=== PATIENT | female | born 1960 | race Caucasian/White ===

== ENCOUNTER 2019-02-01 17:13 | Observation (INO) ==
[2019-02-01 18:32] LABS: Basophils # 0.1 10*3/uL (0.0-0.2); Basophils % 0.4 % (0.0-0.8); Eosinophils # 0.1 10*3/uL (0.0-0.87); Eosinophils % 0.4 % (0.00-10.9); Hematocrit 46.4 VOL% (35.7-47.0); Hemoglobin 15.5 GM/DL (12.0-16.0); Immature Granulocytes % 0.9 %; Lymphocytes # 2.1 10*3/uL (1.4-4.0); Mean Corpuscular HGB Conc 33.4 GM/DL (32-36); Mean Corpuscular Volume 88.9 FL (87-102); Mean Platelet Volume 10.9 FL (9.6-12.0); Monocytes % 4.1 % (1.7-12.7); Neutrophils % 85.2 % (38.7-73.9); Platelet Count 272 T/CUMM (130-400); Red Blood Count 5.22 MC/CUMM (3.8-5.5)
[2019-02-01 18:55] LABS: Alanine Aminotransferase 39 U/L (13-56); Alkaline Phosphatase 80 U/L (45-117); Aspartate Amino Transferase 26 U/L (0-37); Blood Urea Nitrogen 11 MG/DL (7-18); Calcium 9.6 MG/DL (8.5-10.1); Estimated Glom Filtration Rate 73 ML/MIN; Glucose 192 MG/DL (74-106); Osmolality,Calculated 271.2 MOS/KG (273-304); Total Protein 9.3 G/DL (6.4-8.3); Troponin I < 0.015 NG/ML (0.00-0.045)
[2019-02-01 19:23] LABS: Band Neutrophils 1 % (0-10); Eosinophils 1 % (0-10); Giant Platelets Few; Lymphocytes 9 % (20-55); Platelet Estimate Adequate; Segmented Neutrophils 87 % (50-85); Total Cells Counted 100
[2019-02-01] MEDS ORDERED: METOCLOPRAMIDE 10 MG/2 ML VIAL IV STA (19:59)
[2019-02-01] MEDS ORDERED: SODIUM CHLORIDE 0.9% 1,000 ML IV STA (19:59)
[2019-02-01] MEDS ORDERED: PANTOPRAZOLE 40 MG VIAL IV STA (19:59)
[2019-02-01] MEDS ORDERED: CIPROFLOXACIN INJ 400 MG in PREMIX 1 EACH IV STA (19:59)
[2019-02-01] MEDS ORDERED: metroNIDAZOLE INJ 500 MG in PREMIX 1 EACH IV STA (19:59)
[2019-02-01] MEDS ORDERED: ONDANSETRON 4 MG/2 ML VIAL IV STA (19:59)
[2019-02-01 20:37] LABS: Apearance,Urine CLEAR (Clear); Bilirubin,Urine Negative (Negative); Blood, Urine Negative (Negative); Glucose,Urine (UA) Negative (Negative); Ketones,Urine 5 mg/dL (Negative); Mucus,Urine Occasional /LPF (Occasional); Nitrite,Urine Negative (Negative); Protein,Urine Negative; RBC,Urine 2 /HPF (0-4); Squamous Epithelial Cell,Urine Occasional /HPF (0-10); Urine Color Yellow (Yellow); Urine Urobilinogen < 2.0 EU/DL (0.2-1.0); WBC,Urine <1 /HPF (0-6)
[2019-02-02] MEDS ORDERED: ALBUTEROL/IPRATROPIUM 3 ML NEB RESP TX PRN (01:31)
[2019-02-02] MEDS ORDERED: PROMETHAZINE 25 MG/1 ML VIAL IM PRN (01:31)
[2019-02-02] MEDS ORDERED: GLUCAGON 1 MG VIAL IM PRN (01:31)
[2019-02-02] MEDS ORDERED: ONDANSETRON 4 MG/2 ML VIAL IV PRN (01:31)
[2019-02-02] MEDS ORDERED: hydrALAZINE 20 MG/1 ML VIAL IV PRN (01:31)
[2019-02-02] MEDS ORDERED: DEXTROSE 50% 25 GM/50 ML VIAL IV PRN (01:31)
[2019-02-02] MEDS ORDERED: ACETAMINOPHEN 325 MG TABLET PO PRN (01:31)
[2019-02-02] MEDS ORDERED: HYDROmorphone 2 MG/1 ML VIAL IV PRN (01:31)
[2019-02-02] MEDS: SODIUM CHLORIDE 0.9% 1,000 ML IV SCH (01:48)
[2019-02-02] MEDS ORDERED: PNEUMOCOCCAL VACCINE (13 VALENT) 0.5 ML SYRINGE IM ONE (02:25)
[2019-02-02] MEDS ORDERED: INFLUENZA VIRUS VACCINE 0.5 ML SYRINGE IM ONE (02:25)
[2019-02-02] MEDS: metroNIDAZOLE INJ 500 MG in PREMIX 1 EACH IV SCH ×3 (05:16→22:11)
[2019-02-02 05:42] LABS: Basophils # 0.1 10*3/uL (0.0-0.2); Basophils % 0.4 % (0.0-0.8); Eosinophils # 0.2 10*3/uL (0.0-0.87); Hematocrit 44.9 VOL% (35.7-47.0); Hemoglobin 14.5 GM/DL (12.0-16.0); Immature Granulocytes % 0.7 %; Immature Granulocytes Absolute 0.11 #; Lymphocytes # 3.4 10*3/uL (1.4-4.0); Mean Corpuscular HGB Conc 32.3 GM/DL (32-36); Mean Corpuscular Volume 91.6 FL (87-102); Mean Platelet Volume 10.7 FL (9.6-12.0); Monocytes % 6.9 % (1.7-12.7); Platelet Count 245 T/CUMM (130-400); Red Cell Distribution Width 13.2 % (9.3-17.3); White Blood Count 15.3 T/CUMM (4-12)
[2019-02-02] MEDS: INSULIN REGULAR 100 UNIT/ML SUBCUT SCH ×3 (06:01→17:08)
[2019-02-02 06:09] LABS: Calcium 8.9 MG/DL (8.5-10.1); Osmolality,Calculated 286.1 MOS/KG (273-304)
[2019-02-02] MEDS: CIPROFLOXACIN INJ 400 MG in PREMIX 1 EACH IV SCH ×2 (08:15→21:05)
[2019-02-02] MEDS: LOSARTAN 50 MG TABLET PO SCH (08:15)
[2019-02-02] MEDS: PANTOPRAZOLE 40 MG TABLET PO SCH (08:16)
[2019-02-03] MEDS: SODIUM CHLORIDE 0.9% 1,000 ML IV SCH ×2 (00:47→22:05)
[2019-02-03] MEDS: INSULIN REGULAR 100 UNIT/ML SUBCUT SCH ×4 (00:52→17:17)
[2019-02-03 05:27] LABS: Basophils # 0.1 10*3/uL (0.0-0.2); Basophils % 0.5 % (0.0-0.8); Eosinophils # 0.3 10*3/uL (0.0-0.87); Eosinophils % 2.4 % (0.00-10.9); Hematocrit 41.5 VOL% (35.7-47.0); Hemoglobin 13.6 GM/DL (12.0-16.0); Immature Granulocytes % 0.5 %; Immature Granulocytes Absolute 0.06 #; Lymphocytes # 3.1 10*3/uL (1.4-4.0); Lymphocytes % 28.2 % (21.3-54.2); Mean Corpuscular HGB Conc 32.8 GM/DL (32-36); Mean Corpuscular Volume 90.8 FL (87-102); Mean Platelet Volume 11.3 FL (9.6-12.0); Monocytes % 7.6 % (1.7-12.7); Neutrophils % 60.8 % (38.7-73.9); Platelet Count 226 T/CUMM (130-400); Red Blood Count 4.57 MC/CUMM (3.8-5.5); Red Cell Distribution Width 13.1 % (9.3-17.3)
[2019-02-03] MEDS: metroNIDAZOLE INJ 500 MG in PREMIX 1 EACH IV SCH ×3 (05:48→21:28)
[2019-02-03 05:50] LABS: Albumin 3.1 G/DL (3.4-5.0); Bilirubin,Direct 0.11 MG/DL (0.0-0.20); Bilirubin,Indirect 0.4 MG/DL (0.0-1.0); Bilirubin,Total 0.5 MG/DL (0.2-1.0); Total Protein 7.3 G/DL (6.4-8.3)
[2019-02-03 06:21] LABS: Calcium 8.6 MG/DL (8.5-10.1); Osmolality,Calculated 283.1 MOS/KG (273-304)
[2019-02-03] MEDS: CIPROFLOXACIN INJ 400 MG in PREMIX 1 EACH IV SCH ×2 (07:57→19:43)
[2019-02-03] MEDS: PANTOPRAZOLE 40 MG TABLET PO SCH (08:33)
[2019-02-03] MEDS: LOSARTAN 50 MG TABLET PO SCH (08:33)
[2019-02-03] MEDS ORDERED: BUPIVACAINE MPF 0.25% 30 ML VIAL ONE (11:26)
[2019-02-03] MEDS ORDERED: TISSUE ADHESIVE 1 EACH APPLICATOR TOP ONE (11:26)
[2019-02-03] MEDS ORDERED: LIDOCAINE 1%/EPI INJ 20 ML VIAL ONE (11:26)
[2019-02-03] MEDS ORDERED: PROPOFOL 200 MG/20 ML VIAL IV ONE (13:28)
[2019-02-03] MEDS ORDERED: SEVOFLURANE 1 UNIT/15 MINUTE INH ONE (13:28)
[2019-02-03] MEDS ORDERED: MIDAZOLAM 2 MG/2 ML VIAL ONE (13:28)
[2019-02-03] MEDS ORDERED: fentaNYL 100 MCG/2 ML VIAL ONE (13:28)
[2019-02-03] MEDS ORDERED: ESMOLOL 100 MG/10 ML VIAL IV ONE (13:29)
[2019-02-03] MEDS ORDERED: GLYCOPYRROLATE 0.4 MG/2 ML VIAL ONE (13:29)
[2019-02-03] MEDS ORDERED: LIDOCAINE 2% 5 ML VIAL ONE (13:29)
[2019-02-03] MEDS ORDERED: NEOSTIGMINE 10 MG/10 ML VIAL ONE (13:29)
[2019-02-03] MEDS ORDERED: ROCURONIUM 100 MG/10 ML VIAL IV ONE (13:29)
[2019-02-03] MEDS ORDERED: ONDANSETRON 4 MG/2 ML VIAL ONE (13:29)
[2019-02-03] MEDS ORDERED: KETOROLAC 30 MG/1 ML VIAL ONE (13:29)
[2019-02-04] MEDS: INSULIN REGULAR 100 UNIT/ML SUBCUT SCH ×2 (01:21→05:51)
[2019-02-04 04:47] LABS: Basophils # 0.1 10*3/uL (0.0-0.2); Basophils % 0.4 % (0.0-0.8); Eosinophils # 0.2 10*3/uL (0.0-0.87); Eosinophils % 1.6 % (0.00-10.9); Hematocrit 39.1 VOL% (35.7-47.0); Hemoglobin 12.9 GM/DL (12.0-16.0); Immature Granulocytes % 0.4 %; Immature Granulocytes Absolute 0.06 #; Lymphocytes % 21.8 % (21.3-54.2); Mean Corpuscular Volume 89.7 FL (87-102); Mean Platelet Volume 11.4 FL (9.6-12.0); Monocytes % 8.1 % (1.7-12.7); Neutrophils % 67.7 % (38.7-73.9); Platelet Count 202 T/CUMM (130-400); Red Blood Count 4.36 MC/CUMM (3.8-5.5); Red Cell Distribution Width 12.9 % (9.3-17.3); White Blood Count 13.6 T/CUMM (4-12)
[2019-02-04 05:13] LABS: Calcium 8.3 MG/DL (8.5-10.1); Osmolality,Calculated 284.1 MOS/KG (273-304)
[2019-02-04] MEDS: metroNIDAZOLE INJ 500 MG in PREMIX 1 EACH IV SCH (05:33)
[2019-02-04] MEDS: LOSARTAN 50 MG TABLET PO SCH (08:18)
[2019-02-04] MEDS: PANTOPRAZOLE 40 MG TABLET PO SCH (08:18)
[2019-02-04] MEDS: CIPROFLOXACIN INJ 400 MG in PREMIX 1 EACH IV SCH (08:21)
[2019-02-04 08:35] VITALS: BP 132/75
[2019-02-04] MEDS ORDERED: BISACODYL 10 MG SUPP RECTAL PRN (09:02)
[2019-02-04] MEDS ORDERED: metFORMIN 500 MG TABLET PO SCH (21:00)
== END 2019-02-04 11:23 | disposition home or self-care (01) ==
LOC: N.EDINP 17:13 → N.ED 17:13 → SUATTDRO 23:59 → N.5E 02-02 00:22
PROVIDERS: ADMIT Internal Medicine; ATTEND Internal Medicine
PROC: LAPCHOL (2019-02-03 12:13)